=== PATIENT | male | born 2005 | race Caucasian/White ===

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

== ENCOUNTER 2024-03-31 19:32 | Emergency (ER) | payer OTHER ==
[~2024-03-31] VITALS: Ht 167.6 cm; Wt 59.9 kg
[~2024-03-31 19:32] MED LIST: PYRI1TAB5 PO; ZITHTAB PO
[2024-03-31 19:37] VITALS: BP 148/86; TEMP 98.8; O2SAT 98
[2024-03-31 22:38] LABS: Trichomonas vaginalis (AMP) NOT DETECTED (NEGATIVE)
[2024-03-31 23:02] LABS: GC DNA AMPLIFICATION NEGATIVE (NEGATIVE)
[2024-04-01] MEDS ORDERED: PYRI1TAB5 PO (18:32)
== END 2024-03-31 22:40 | disposition left against medical advice (07) ==
LOC: M ED 19:32
DX: Z53.21 Procedure and treatment not carried out due to patient leaving prior to being seen by health care provider (principal)

== ENCOUNTER 2024-04-01 16:01 | Emergency (ER) | payer OTHER ==
[~2024-04-01] VITALS: Ht 170.2 cm; Wt 59.5 kg
[2024-04-01] MEDS ORDERED: PYRI1TAB5 PO (18:32)
[2024-04-01 18:33] LABS: Trichomonas vaginalis (AMP) NOT DETECTED (NEGATIVE)
[2024-04-01 18:40] VITALS: BP 148/91; TEMP 97.4; O2SAT 99
[2024-04-01 18:57] LABS: GC DNA AMPLIFICATION NEGATIVE (NEGATIVE)
== END 2024-04-01 18:46 | disposition home or self-care (01) ==
LOC: M ED 16:01
DX: R30.0 Dysuria (principal); F17.210 Nicotine dependence, cigarettes, uncomplicated; Z79.899 Other long term (current) drug therapy

== ENCOUNTER 2024-06-30 15:42 | Emergency (ER) | payer OTHER ==
[~2024-06-30] VITALS: Ht 170.2 cm; Wt 59.1 kg
[2024-06-30 15:46] VITALS: BP 139/91; TEMP 99.1; O2SAT 99
[2024-06-30 16:23] LABS: KETONE, URINE AUTO RFX NEGATIVE (NEGATIVE); LEUKOCYTE ESTERASE UR AUTO RFX NEGATIVE (NEGATIVE); MUCUS, URINE RFX SMALL (NEGATIVE); NITRITE, URINE AUTO RFX NEGATIVE (NEGATIVE); RBC, URINE AUTO RFX 1 /HPF (0-3); SQUAM EPITHELIAL CELL UR AURFX 0 /HPF (0-6); WBC, URINE AUTO RFX 0 /HPF (0-3)
[2024-06-30 17:32] LABS: Trichomonas vaginalis (AMP) NOT DETECTED (NEGATIVE)
[2024-06-30 17:56] LABS: GC DNA AMPLIFICATION NEGATIVE (NEGATIVE)
[2024-06-30 18:28] LABS: HEPATITIS B SURFACE ANTIBODY NEGATIVE (POSITIVE)
[2024-06-30 18:41] LABS: HEPATITIS B SURFACE ANTIGEN NEGATIVE (NEGATIVE)
[2024-06-30 18:53] LABS: HIV 1&2 SCREEN NEGATIVE (NEGATIVE)
[2024-06-30 19:02] LABS: HEPATITIS C VIRUS ABY INDEX 0.02 INDEX (<0.8)
== END 2024-06-30 19:14 | disposition home or self-care (01) ==
LOC: M ED 15:42
DX: R30.0 Dysuria (principal)

== ENCOUNTER 2024-08-06 15:38 | Emergency (ER) | payer OTHER | END 2024-08-06 16:32 | disposition left against medical advice (07) | LOC: M ED 15:38 | DX: Z53.21 Procedure and treatment not carried out due to patient leaving prior to being seen by health care provider (principal) ==

== ENCOUNTER 2024-08-07 12:37 | Emergency (ER) | payer OTHER ==
[~2024-08-07] VITALS: Ht 170.2 cm; Wt 57.2 kg
[2024-08-07 12:56] VITALS: BP 141/93; TEMP 99.3; O2SAT 100
[2024-08-07 16:49] LABS: Trichomonas vaginalis (AMP) NOT DETECTED (NEGATIVE)
[2024-08-07 17:13] LABS: GC DNA AMPLIFICATION NEGATIVE (NEGATIVE)
== END 2024-08-07 17:29 | disposition left against medical advice (07) ==
LOC: M ED 12:37
DX: Z53.21 Procedure and treatment not carried out due to patient leaving prior to being seen by health care provider (principal)

== ENCOUNTER 2024-08-10 11:36 | Emergency (ER) | payer OTHER ==
[~2024-08-10] VITALS: Ht 170.2 cm; Wt 56.2 kg
[2024-08-10 13:22] LABS: Trichomonas vaginalis (AMP) NOT DETECTED (NEGATIVE)
[2024-08-10 13:43] LABS: HEPATITIS B SURFACE ANTIBODY NEGATIVE (POSITIVE)
[2024-08-10 13:46] LABS: GC DNA AMPLIFICATION NEGATIVE (NEGATIVE)
[2024-08-10 13:55] LABS: HEPATITIS B SURFACE ANTIGEN NEGATIVE (NEGATIVE)
[2024-08-10 14:07] LABS: HIV 1&2 SCREEN NEGATIVE (NEGATIVE)
[2024-08-10 14:15] LABS: HEPATITIS C VIRUS ABY INDEX 0.02 INDEX (<0.8)
[2024-08-10 14:24] VITALS: BP 125/79; TEMP 98.7; O2SAT 99
== END 2024-08-10 14:25 | disposition home or self-care (01) ==
LOC: M ED 11:36
DX: Z11.3 Encounter for screening for infections with a predominantly sexual mode of transmission (principal)